=== PATIENT | female | born 1990 | race Two or more races ===

== ENCOUNTER 2017-04-20 07:10 | Inpatient (IN) | payer OTHER ==
[2017-04-20] MEDS: ELECTROLYTE-148 SOLN 1,000 ML IV SCH ×3 (08:25→14:59)
[2017-04-20 08:39] VITALS: BMI 23.9
--- NOTE | 2017-04-20 08:46 | HP ---
Past Medical History - Primary Care Physician PCP:: Nikki Castillo - Admission Chief Complaint: 26 yrs 39.6/7 weeks iup , onset LP since 12.00 midnight History of Present Illness: pt is late registrant at 35 weeks on 03/17/17 at [facility] she transferred from care from [place] panel 03/17/17 A pos, Hbsag neg, Rubella pos, Rpr nr, Hiv nr, Sickle neg , Rapid Strep A neg, [id number] , Quantiferon neg , CF neg, Pap nilm, gc/ct neg . GBS neg sono on 03/18/17 [place], cephalic, Kylee 12.8.EFw 2787gm( 58%tile), Bpp8/8 h/o vaginal itching, she was given vaginal cream for local application h/o sore throat at 4 months she was treated with antibiotics History Source: Patient, Medical Record Limitations to Obtaining History: No Limitations - Past Medical History PUMP INSTALLER: No: CVA, Migraine, Seizure Cardiovascular: No: HTN, Murmur Pulmonary: Yes: Other (h/o urti at 4 months gestattion). No: Asthma Gastrointestinal: Yes: Constipation Hepatobiliary: No: Cholelithiasis Renal/: No: UTI ...: 1 ...Para: 0 ...EDC by Sono: 04/21/17 (39.6/7 weeks by sono ) Infectious Disease: No: AIDS, HIV, STD's, Tuberculosis Psych: No: Addictions, Anxiety, Bipolar, Depression, Panic - Past Surgical History Past Surgical History: Yes: None Hx Myomectomy: No Hx Transabdominal Cerclage: No - Smoking History Smoking history: Never smoked - Alcohol/Substance Use Hx Alcohol Use: No History of Substance Use: reports: None Home Medications - Allergies Allergies/Adverse Reactions: Allergies Allergy/AdvReac Type Severity Reaction Status Date / Time No Known Allergies Allergy Verified 04/20/17 08:07 - Home Medications Home Medications: Ambulatory Orders Cholecalciferol (Vitamin D3) [Vitamin D -] 1 tab PO DAILY 04/20/17 Ferrous Sulfate [Iron] 325 mg PO DAILY 04/20/17 Vit 108/Iron/Folic AC [ One Tablet] 1 tab PO DAILY 04/20/17 Physical Exam - Maternity Vital Signs: Vital Signs Temperature 98.3 F 04/20/17 07:15 Pulse Rate 100 H 04/20/17 07:15 Respiratory Rate 20 04/20/17 07:15 Blood Pressure 123/81 04/20/17 07:15 O2 Sat by Pulse Oximetry (%) Selected Entries 04/20/17 08:15 Temperature 97.9 F Pulse Rate 85 Respiratory 20 Rate Blood Pressure 127/76 Weight 136 lb 10.986 oz Constitutional: Yes: Well Nourished, Moderate Distress Eyes: Yes: WNL HENT: Yes: WNL, Normocephalic Neck: Yes: WNL Cardiovascular: Yes: WNL Lungs: Clear to auscultation Breast(s): Yes: WNL - Abdominal Exam/OB Fundal Height: 38 Number of Fetuses: Single Presentation: Vertex Contractions: Yes Regularity: Regular (2-3 min) Intensity: Mod/Strong Monitor Mode: External Heart Rate (range): 130-140 Heart Rate Location: [facility] Category: I Accelerations: Uniform Decelerations: None - Vaginal Exam/OB Vaginal Bleediing: No Dilatation (cm): 6 Effacement (%): 100 Amniotic Membrane Status: Intact Presentation: Vertex/Position Station: 0 - Physical Exam Musculoskeletal: Yes: WNL Extremities: Yes: WNL. No: Calf Tenderness Edema: No Integumentary: Yes: WNL Deep Tendon Reflex Grade: Normal +2 ...Motor Strength: WNL Psychiatric: Yes: WNL, Alert, Oriented - Labs Lab Results: Laboratory Tests 04/20/17 04/20/17 04/20/17 09:14 09:14 09:14 WBC 10.4 H Hgb 12.5 Hct 37.0 MCV 84.9 Plt Count 147 Neutrophils % 75.5 Lymphocytes % 18.6 PTT (Actin FS) 28.7 Sodium 140 Potassium 3.9 Chloride 106 Carbon Dioxide 21 BUN 10 Creatinine 0.5 L Random Glucose 81 Calcium 8.3 L Problem List - Problems (1) with 39 completed weeks gestation Code(s): Z3A.39 - 39 WEEKS GESTATION OF (2) Labor established Code(s): DDQ4659 - Assessment/Plan 26 yrs 39.6/7 weeks in active labor . Gbs neg Plan vaginal delivery trial epidural for labor analgesia
[2017-04-20] MEDS ORDERED: PROMETHAZINE HCL 25 MG/1 ML VIAL IVPB ONE (09:05)
[2017-04-20] MEDS ORDERED: BUTORPHANOL TARTRATE 1 MG/ML VIAL IVPB ONE (09:05)
[2017-04-20 09:24] LABS: BASO % 0.6 % (0-2.0); EOS % 0.7 % (0-4.5); HEMOGLOBIN 12.5 GM/dL (10.7-15.3); LYMPH % 18.6 % (8-40); MCH 28.7 pg (25.7-33.7); MCHC 33.8 g/dl (32.0-36.0); MEAN CELL VOLUME 84.9 fl (80-96); MONO % 4.6 % (3.8-10.2); NEUT % 75.5 % (42.8-82.8); PLATELET COUNT 147 K/MM3 (134-434); RBC 4.36 M/mm3 (3.60-5.2); RDW 14.4 % (11.6-15.6); WHITE BLOOD COUNT 10.4 K/mm3 (4.0-10.0)
[2017-04-20 09:48] LABS: INR 0.91 (0.82-1.09); PROTHROMBIN TIME (PATIENT) 10.3 SEC (9.98-11.88)
[2017-04-20 09:56] LABS: ANION GAP 13 (8-16); BLOOD UREA NITROGEN 10 mg/dL (7-18); CALCIUM 8.3 mg/dL (8.5-10.1); CHLORIDE 106 mmol/L (98-107); CO2 21 mmol/L (21-32); CREATININE 0.5 mg/dL (0.55-1.02); GLUCOSE,RANDOM 81 mg/dL (74-106); POTASSIUM 3.9 mmol/L (3.5-5.1); SODIUM 140 mmol/L (136-145)
[2017-04-20] MEDS ORDERED: FENTANYL/BUPIVACAINE/NS/PF - PCEA - 50 ML DISP.SYRIN EP ONE ×2 (10:56→15:12)
[2017-04-20] MEDS ORDERED: NALOXONE HCL 0.4 MG/ML VIAL IVPUSH PRN (11:33)
[2017-04-20] MEDS ORDERED: FENTANYL/BUPIVACAINE/NS/PF - PCEA - 50 ML DISP.SYRIN EP SCH (11:45)
--- NOTE | 2017-04-20 12:56 | PN ---
Progress Note, Labor Vaginal Exam #1 Labor Exam Date: 04/20/17 Labor Exam Time: 11:00 Heart Rate (range): 120-130 Dilatation: 8 Effacement (%): 100 Amniotic Membrane Status: Intact Presentation: Vertex/Position Station: 0 Remarks: uc 2-3 min, fhr cat-1 9.30 AM stado1 mg + phenrgan 25 mg iv stat was given 11.30 am epidural was given Selected Entries 04/20/17 04/20/17 10:00 11:20 Temperature 97.7 F Pulse Rate 78 76 Blood Pressure 127/78 121/76 Vaginal Exam #2 Labor Exam Date: 04/20/17 Labor Exam Time: 12:45 Heart Rate (range): 125 Dilatation: 9 Effacement (%): 100 Amniotic Membrane Status: Ruptured Presentation: Vertex/Position Station: +1 (+1/+2) Remarks: uc are 2-4 min fhr cat-1 Selected Entries 04/20/17 04/20/17 04/20/17 12:00 12:15 12:30 Temperature 98.2 F Pulse Rate 74 70 Blood Pressure 119/78 118/70 Vaginal Exam #3 Labor Exam Date: 04/20/17 Labor Exam Time: 14:30 Heart Rate (range): 125 Dilatation: rt rim Effacement (%): 100 Amniotic Membrane Status: Ruptured Station: +2 Remarks: fhr cat-1 uc 2-3-4 min plan pitocin augmentation Selected Entries 04/20/17 14:15 Pulse Rate 87 Blood Pressure 125/74 Vaginal Exam #4 Labor Exam Date: 04/20/17 Labor Exam Time: 15:30 Heart Rate (range): 125 Dilatation: 10 Effacement (%): 100 Amniotic Membrane Status: Ruptured Station: +2 Remarks: fhr cat-1 uc q2 min no urge tp push , wait for passive descent Selected Entries 04/20/17 04/20/17 04/20/17 14:00 14:15 14:30 Temperature 98.6 F Pulse Rate 87 87 Respiratory 20 20 Rate Blood Pressure 125/74 136/65 O2 Sat by Pulse 100 100 Oximetry (%) patient was encouraged to push at 4.15 pm she was exhausted , she was allowed to rest from 5 to 5.30 pm vx station was +2 /+3 , caput , FHR cat-1 , uc 2-3 min . she was again encouraged to push at 5.30 Pm
[2017-04-20] MEDS ORDERED: OXYTOCIN 15 UNITS/ LR 250 ML 15 UNIT/250 ML INFUS.BAG IVPB ONE (14:43)
[2017-04-20] MEDS ORDERED: OXYTOCIN 20 UNITS in 0.9% NS 20 UNIT/1,000 ML INFUS.BAG IV ONE (14:44)
[2017-04-20] MEDS ORDERED: OXYTOCIN 15 UNITS/ LR 250 ML 15 UNIT/250 ML INFUS.BAG IVPB SCH (14:45)
[2017-04-20 15:03] LABS: COCAINE, UR NEGATIVE ng/ml (CUTOFF=300); METHADONE, UR NEGATIVE ng/ml (CUTOFF=300); OPIATES, URI NEGATIVE ng/ml (CUTOFF=300); PHENCYCLIDINE,URINE NEGATIVE ng/ml (CUTOFF=25); URINE AMPHETAMINES NEGATIVE ng/ml (CUTOFF=500); URINE BARBITURATES NEGATIVE ng/ml (CUTOFF=200); URINE BENZODIAZEPINES NEGATIVE ng/ml (CUTOFF=200)
[2017-04-20] MEDS: FENTANYL/BUPIVACAINE/NS/PF - PCEA - 50 ML DISP.SYRIN EP SCH ×2 (15:15→19:40)
--- NOTE | 2017-04-20 18:37 | PN ---
Delivery - Delivery Vaginal Delivery: No Problems, Spontaneous Type of Anesthesia: Local, Epidural Episiotomy/Laceration: Midline (episiotomy was sutured in layers with chr catgut #2/0 pr ex mucosa & sphincter was intact) EBL (cc): 350 Delivery, Single - Stages of Labor Date 1st Stage Initiatied: 04/20/17 Time 1st Stage Initiated: 00:00 Date 2nd Stage Initiated: 04/20/17 Time 2nd Stage Initiated: 15:30 Date of Delivery: 04/20/17 Time of Delivery: 17:58 Date Placenta Delivered: 04/20/17 Time Placenta Delivered: 18:05 Placenta: Yes: Spontaneous, Uterine Exploration - Condition of Infant Infant Gender: Male Weight: 8 lb 2 oz Position: Left, OA Total Hours ROM (Hrs/Mins): 6hrs 35 min - 1 Minute Total Score: 9 5 Minutes Total Score: 9 - [place] Feeding Plan Initial Plan: Exclusive throughout hospitalization Remarks - Remarks Remarks: 26 yrs 39.4/7 weeks iup admitted in labor late registrant at [address] [place] [address] gbs neg stadol 1mg followed by [id number] mg iv stat for labor analgesia followed by epidural labor analgesia was given . Intrapartum course uneventful
[2017-04-20] MEDS ORDERED: BISACODYL 10 MG SUPP.RECT RC PRN (18:38)
[2017-04-20] MEDS ORDERED: BENZOCAINE 28 GM HEMORRHOIDAL OINTMENT TP PRN (18:38)
[2017-04-20] MEDS ORDERED: BENZOCAINE 20% 57 GM BOTTLE TP PRN (18:38)
[2017-04-20] MEDS ORDERED: WITCH HAZEL 50% (TUCKS) 40 PAD/JAR PAD TP PRN (18:38)
[2017-04-20] MEDS ORDERED: METHYLERGONOVINE MALEATE 0.2 MG/1 ML AMP IM PRN (18:38)
[2017-04-20] MEDS ORDERED: oxyCODONE HCL 5 MG TABLET PO PRN (18:38)
[2017-04-20] MEDS ORDERED: OXYTOCIN 20 UNITS in 0.9% NS 20 UNIT/1,000 ML INFUS.BAG IV SCH (18:45)
[2017-04-20] MEDS: ACETAMINOPHEN 325 MG TABLET (FP) PO PRN (21:01)
[2017-04-20] MEDS: IBUPROFEN 600 MG TABLET (FP) PO PRN (21:01)
[2017-04-21] MEDS: ACETAMINOPHEN 325 MG TABLET (FP) PO PRN ×3 (06:21→22:29)
[2017-04-21] MEDS: IBUPROFEN 600 MG TABLET (FP) PO PRN ×3 (06:22→22:29)
[2017-04-21] MEDS: FERROUS SO4 325 MG TABLET (FP) PO SCH ×2 (08:00→16:57)
[2017-04-21 08:48] LABS: BASO % 0.2 % (0-2.0); EOS % 0.5 % (0-4.5); HEMATOCRIT 29.6 % (32.4-45.2); LYMPH % 15.1 % (8-40); MCH 28.6 pg (25.7-33.7); MCHC 33.8 g/dl (32.0-36.0); MEAN CELL VOLUME 84.7 fl (80-96); MEAN PLT VOLUME 7.9 fl (7.5-11.1); MONO % 4.3 % (3.8-10.2); NEUT % 79.9 % (42.8-82.8); PLATELET COUNT 159 K/MM3 (134-434); RDW 14.4 % (11.6-15.6)
[2017-04-21] MEDS: PRENATAL VITAMINS W/ FOLIC ACID TABLET (FP) PO SCH (09:02)
--- NOTE | 2017-04-21 18:40 | PN ---
Progress Note (short form) - Note Progress Note: ppd 1 doing well, no c/o voids ok CBC, BMP 04/21/17 08:00 04/20/17 09:14 Last Vital Signs Temp Pulse Resp BP Pulse Ox 97.9 F 94 H 20 128/50 99 04/21/17 14:00 04/21/17 14:00 04/21/17 14:00 04/21/17 14:00 04/20/17 18:43 abdomen soft, uterus firm, non tender lochia mild no calf tenderness lian ambulate, d/c home in am
[2017-04-21] MEDS ORDERED: FLU VACC QS2017-18 36MOS UP/PF 60 MCG/0.5 ML SYRINGE IM ONE (19:00)
[2017-04-21] MEDS ORDERED: DIPHTH,PERTUSS(ACELL),TET 0.5 ML DISP.SYRIN IM ONE (19:00)
[2017-04-21] MEDS ORDERED: SENNOSIDES/DOCUSATE COMBO (SENNA PLUS) TABLET (UD) PO PRN (22:00)
[2017-04-22] MEDS: ACETAMINOPHEN 325 MG TABLET (FP) PO PRN ×2 (02:54→10:05)
[2017-04-22] MEDS: IBUPROFEN 600 MG TABLET (FP) PO PRN ×2 (02:55→10:04)
--- NOTE | 2017-04-22 08:12 | PN ---
Progress Note (short form) - Note Progress Note: ppd 2 no c/o , no excess vaginal bleeding CBC, BMP 04/21/17 08:00 04/20/17 09:14 Last Vital Signs Temp Pulse Resp BP Pulse Ox 97.7 F 85 20 118/61 99 04/21/17 21:00 04/21/17 21:00 04/21/17 21:00 04/21/17 21:00 04/20/17 18:43 abdomen soft, uterus firm, non tender no calf tenderness plan d/c home, rtc 4 weeks
--- NOTE | 2017-04-22 08:50 | DS ---
Physical Exam-SURVEYOR Vital Signs: Vital Signs Temperature 97.7 F 04/21/17 21:00 Pulse Rate 85 04/21/17 21:00 Respiratory Rate 20 04/21/17 21:00 Blood Pressure 118/61 04/21/17 21:00 O2 Sat by Pulse Oximetry (%) 99 04/20/17 18:43 Constitutional: Yes: Well Nourished Eyes: Yes: WNL HENT: Yes: WNL, Normocephalic Neck: Yes: WNL Respiratory: Yes: WNL Gastrointestinal: Yes: WNL ....Post : Yes: Uterus firm, Uterus non-tender, Moderate lochia rubra ( episiotomy healing,perineal soreness) Breast(s): Yes: WNL Musculoskeletal: Yes: WNL Extremities: Yes: WNL. No: Calf Tenderness Edema: No Integumentary: Yes: WNL Neurological: Yes: WNL, Alert, Oriented ...Motor Strength: WNL Labs: CBC, BMP 04/21/17 08:00 04/20/17 09:14 Delivery - Delivery Vaginal Delivery: No Problems, Spontaneous Type of Anesthesia: Local, Epidural Episiotomy/Laceration: Midline (episiotomy was sutured in layers with chr catgut #2/0 pr ex mucosa & sphincter was intact) EBL (cc): 350 Delivery, Single - Stages of Labor Date 1st Stage Initiatied: 04/20/17 Time 1st Stage Initiated: 00:00 Date 2nd Stage Initiated: 04/20/17 Time 2nd Stage Initiated: 15:30 Date of Delivery: 04/20/17 Time of Delivery: 17:58 Time Placenta Delivered: 18:05 Placenta: Yes: Spontaneous, Uterine Exploration - Condition of Infant Box 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 Intrapartum course uneventful pp course uneventful anemia counselled discharge today Discharge Summary Reason For Visit: LABOR ADMISSSIO Current Active Problems Anemia (Acute) Labor established (Acute) Normal spontaneous vaginal delivery (Acute) with 39 completed weeks gestation (Acute) - Instructions Diet, Activity, Other Instructions: regular diet, no intercourse , follow up [facility] care 4 weeks Referrals: Nikki Castillo MD [Staff Physician] - - Home Medications Comprehensive Discharge Medication List: Ambulatory Orders Cholecalciferol (Vitamin D3) [Vitamin D -] 1 tab PO DAILY 04/20/17 Ferrous Sulfate [Iron] 325 mg PO DAILY 04/20/17 Vit 108/Iron/Folic AC [ One Tablet] 1 tab PO DAILY 04/20/17 Acetaminophen [Tylenol .Regular Strength -] 650 mg PO Q3H PRN tablet 04/22/17 Benzocaine [Americaine 20% [place] -] 1 spray TP PRN PRN bottle 04/22/17 Ferrous Sulfate [Feosol] 325 mg PO BIDWM tab 04/22/17 Ibuprofen [Motrin -] 600 mg PO Q4H PRN tablet 04/22/17 Ibuprofen [Motrin -] 600 mg PO QID #28 tablet 04/22/17 Vitamins (Sjr) - 1 tab PO DAILY tablet 04/22/17 [place] 50% (Tucks) [Tucks Pads -] 1 pad TP PRN PRN pad 04/22/17
[2017-04-22] MEDS: FERROUS SO4 325 MG TABLET (FP) PO SCH (09:05)
[2017-04-22] MEDS: PRENATAL VITAMINS W/ FOLIC ACID TABLET (FP) PO SCH (09:05)
[2017-04-22] MEDS ORDERED: MAGNESIUM SULF 50% (8.12 MEQ/2 ML-1 GM VIAL) IVPB ONE (11:53)
[2017-04-22] MEDS ORDERED: MAGNESIUM 4GM/H20 - 4 GM/100 ML IVPB IVPB ONE (12:00)
[2017-04-22] MEDS: MAGNESIUM 1GM/D5W - 1 GM/100 ML IVPB IVPB SCH ×2 (12:00→12:30)
[2017-04-22 12:17] LABS: BASO % 0.7 % (0-2.0); EOS % 1.6 % (0-4.5); HEMATOCRIT 30.1 % (32.4-45.2); HEMOGLOBIN 10.3 GM/dL (10.7-15.3); LYMPH % 16.3 % (8-40); MCH 28.8 pg (25.7-33.7); MEAN CELL VOLUME 84.6 fl (80-96); MEAN PLT VOLUME 7.2 fl (7.5-11.1); MONO % 3.3 % (3.8-10.2); NEUT % 78.1 % (42.8-82.8); PLATELET COUNT 201 K/MM3 (134-434); RBC 3.56 M/mm3 (3.60-5.2); RDW 14.3 % (11.6-15.6)
--- NOTE | 2017-04-22 12:17 | RAPID ---
Physical Examination Vital Signs: Vital Signs Temperature 97.7 F 04/21/17 21:00 Pulse Rate 85 04/21/17 21:00 Respiratory Rate 20 04/21/17 21:00 Blood Pressure 118/61 04/21/17 21:00 O2 Sat by Pulse Oximetry (%) 99 04/20/17 18:43 Labs: CBC, BMP 04/21/17 08:00 04/20/17 09:14 Rapid Response - Rapid Response Assessment: Rapid Response called on patient Upon my arrival patient was crying, screaming and very anxious. Patient states both her eyes are hurting and that she feels very nervous. She states she did not sleep all night and feels very tired. at bedside who reports patient was doing fine this morning but was very tired and fatigued because of the lack of sleep VITALS: BP: 154/69 HR: 105 02 SAT: 100% on nonrebreather Glucose: 87 PHYSICAL EXAMINATION GENERAL: Awake, Alert, Anxious and mild distress EYES: PERRLA, EOMI, sclera anicterus, No conjunctival injections HEART: Tachycardic with regular rhythm. No murmurs appreciated LUNGS: CTA bilaterally ABDOMEN: Soft, distended post , nontender EXTREMITIES: No peripheral edema but shaking in all extremities ASSESSMENT AND PLAN Briefly, patient is a 26 year old female with no PMHx who is Post day #2 delivered at 39 weeks with no normal vaginal delivery with no complications. Hypertension with Bilateral Eye Pain -Rule out Post Pre-eclampsia -Upon arrival patient had episodes of elevated BP and was shaking throughout all extremities. Patients BP improved to SBP in the 130's after 5 minutes of calming patient down. -CBC, CMP, U/A, MAG and phos levels, chest x-ray and EKG ordered. -Magnesium 2mg IVP given -D5-1/2 NS bolus ordered -Dr. Box notified and agrees with plan
[2017-04-22 12:44] LABS: ALBUMIN 2.1 g/dl (3.4-5.0); ALK PHOS 201 U/L (45-117); ANION GAP 9 (8-16); BILIRUBIN,TOTAL 0.2 mg/dL (0.2-1.0); BLOOD UREA NITROGEN 10 mg/dL (7-18); CALCIUM 8.1 mg/dL (8.5-10.1); CHLORIDE 109 mmol/L (98-107); CO2 23 mmol/L (21-32); CREATININE 0.5 mg/dL (0.55-1.02); GLUCOSE,RANDOM 111 mg/dL (74-106); MAGNESIUM 1.7 mg/dL (1.8-2.4); PHOSPHOROUS 3.7 mg/dL (2.5-4.9); POTASSIUM 3.8 mmol/L (3.5-5.1); SGOT/AST 36 U/L (15-37); SGPT/ALT 32 U/L (12-78); SODIUM 141 mmol/L (136-145); TOT PROT 4.8 g/dl (6.4-8.2)
--- NOTE | 2017-04-22 15:15 | EKG ---
Test Reason : Blood Pressure : / mmHG Vent. Rate : 058 BPM Atrial Rate : 058 BPM P-R Int : 138 ms QRS Dur : 076 ms QT Int : 374 ms P-R-T Axes : 066 068 048 degrees QTc Int : 367 ms SINUS BRADYCARDIA WITH SINUS ARRHYTHMIA NO PREVIOUS ECGS AVAILABLE Confirmed by GERALD HENRY MD ([id number]) on 04/22/2017 3:15:02 PM Referred By: Confirmed By:GERALD HENRY MD
[2017-04-22 15:25] LABS: URINE APPEARANCE SLCLOUDY; URINE BILIRUBIN NEGATIVE (NEGATIVE); URINE BLOOD 3+ (NEGATIVE); URINE COLOR LTYELLOW; URINE GLUCOSE (UA) 1+ (NEGATIVE); URINE KETONE NEGATIVE (NEGATIVE); URINE NITRITE NEGATIVE (NEGATIVE); URINE PROTEIN NEGATIVE (NEGATIVE); URINE UROBILINOGEN NEGATIVE mg/dL (0.2-1.0)
[2017-04-22 15:26] LABS: URINE LEUK ESTERASE 2+ (NEGATIVE)
[2017-04-22 15:28] VITALS: BP 154/69; PULSE 92; TEMP 98.4
[2017-04-22 15:32] LABS: EPI CELLS MODERATE /HPF (FEW); URINE BACTERIA RARE /hpf (NONE SEEN); URINE MUCUS RARE
== END 2017-04-22 16:30 | disposition home or self-care (01) | DRG 560 ==
LOC: JDEL 07:10 → JLDR 08:24 → J3W 20:32
PROVIDERS: ADMIT Obstetrics & Gynecology; ATTEND Obstetrics & Gynecology
PROC: 10E0XZZ Delivery of Products of Conception, External Approach (ICD-10-PCS; principal; 2017-04-20)
PROC: 0W8NXZZ Division of Female Perineum, External Approach (ICD-10-PCS; 2017-04-20)
DX: O75.89 Other specified complications of labor and delivery (principal); R03.0 Elevated blood-pressure reading, without diagnosis of hypertension; Z3A.39 39 weeks gestation of pregnancy; Z37.0 Single live birth
CPT/HCPCS: 36415; 59409; 71045-TC; 80048; 80053; 80307; 81003; 81015; 83735; 84100; 85025; 85610; 85730; 86593; 86850; 86900; 86901; 90686; 90715; 93005; 93010